=== PATIENT | male | born 1995 | race Caucasian/White ===

== ENCOUNTER → 2019-03-15 | Outpatient (CLI) | payer OTHER ==
--- NOTE | 2019-03-23 15:18 | SLEEP ---
[address] [address] SLEEP STUDY REPORT Name: SHERRY DORSEY Room: [facility]#: [id number] Admission: 03/15/19 Attend Phys: Donna Yan Discharge: Date of : 89 Report #: [id number] THIS REPORT FOR: //name// CC: Zaynab Roblero This study has been reviewed in its entirety by a board certified sleep specialist DATE OF SERVICE: 03/15/2019 HOME SLEEP STUDY REFERRING PHYSICIAN: Dr. Zaynab Roblero. The patient is 24 years old who weighs 329 pounds with a BMI of 45.9. The patient's [place] score was 7. The patient underwent home sleep study performed by [facility]. Total recording time was 417 minutes. During the night study, the patient had 14 obstructive apneas, 5 central apneas, no mixed apneas and 60 hypopneas. The patient's apnea hypopnea index was 11.6 per hour. Nocturnal oximetry study revealed an average oxygen saturation of 94% with the lowest of 86%. Only 1 minute was spent in oxygen saturation less than 90%. Mean heart rate 70 beats per minute. IMPRESSION: 1. Mild sleep apnea-hypopnea syndrome at an AHI of 11.6 per hour. 2. No clinically significant nocturnal hypoxia. RECOMMENDATIONS: 1. The patient has mild sleep apnea. I would recommend weight loss as the initial form of treatment. 2. If patient's symptoms persist despite weight loss or if the patient has comorbid conditions, then the patient's sleep apnea can be treated with either CPAP or oral appliance. 3. Avoid [employer] depressants. 4. Cautioned regarding driving until symptoms of sleep apnea resolve with the above recommendations. <ELECTRONICALLY SIGNED> By: Willie Ross MD 03/23/19 1518 [id number] Taty Ross MD /nt
== END ==
LOC: M.SLEEPLAB 09:00
DX: G47.33 Obstructive sleep apnea (adult) (pediatric) (principal); G47.30 Sleep apnea, unspecified